=== PATIENT | female | born 2000 | race Caucasian/White ===

== ENCOUNTER 2018-11-16 15:35 | Emergency (ER) | payer BC ==
[~2018-11-16] VITALS: Ht 165.1 cm; Wt 47.2 kg
[2018-11-16 15:39] VITALS: BP 120/75
--- NOTE | 2018-11-16 15:39 | NUR ---
PT AMBULATES TO BED 3
--- NOTE | 2018-11-16 15:45 | NUR ---
18Y/F BIB SELF WITH C/O PRODUCTIVE CRY COUGH X 1 WEEK, ALSO REPORTS WILKINS AND SORE THROAT. TOOK COUGH SYRUP WITH NO RELIEF, PT IS AAOX4, VSS AT THIS TIME, WE MD AWARE AND NOTIFIED OF PT STATUS. DENIES PMH NKA
--- NOTE | 2018-11-16 16:06 | NUR ---
Patient being evaluated by physician at bedside.
[2018-11-16] MEDS ORDERED: KETOROLAC 30 MG/ML VIAL IM ONE (16:10)
--- NOTE | 2018-11-16 16:14 | NUR ---
INFLUENZA SWAB COLLECTED AND GIVEN TO [place] FROM LAB
[2018-11-16 16:59] VITALS: BP 119/73
--- NOTE | 2018-11-16 16:59 | NUR ---
Patient discharged with v/s stable. Written and verbal after care instructions given and explained. Patient alert, oriented and verbalized understanding of instructions. Ambulatory with steady gait. All questions addressed prior to discharge. ID band removed. Patient advised to follow up with PMD. Rx of naprosyn and sudafed given. Patient educated on indication of medication including possible reaction and side effects. Opportunity to ask questions provided and answered.
== END 2018-11-16 16:59 | disposition home or self-care (01) ==
LOC: MED 15:35
DX: J06.9 Acute upper respiratory infection, unspecified (principal)
CPT/HCPCS: 87804; 96372; 99283; J1885